=== PATIENT | female | born 1995 | race Caucasian/White ===

== ENCOUNTER → 2017-06-02 | Outpatient (CLI) | payer OTHER ==
[~2017-06-02] MED LIST: ACET-1256 PO; ASCA500 PO; BIOT1TAB5 PO; CEPH500C PO; CHRO200T3 PO; CIPR-255 PO; DICL-201 PO; FLV1 PO; HYDR200T5 PO; IBUP-1050 PO; LEVO200T PO; METH2.5T PO; OMEP10CA2 PO; PHEN-939 PO; POLY150C4 PO; RABE20TA5 PO; TOPI100T34 PO; [UNRECOGNIZED DRUG - CODE] IV
--- NOTE | 2017-06-02 11:30 | DIAGNOSTIC IMAGING REPORT ---
RIGHT HAND MIN 3 VIEWS ROUTINE CLINICAL HISTORY: HAND/WRIST PAIN Right pain COMPARISON: None. DISCUSSION: The bones and joint spaces appear intact. There is no evidence of fracture, dislocation or bony disease. There is no evidence for soft tissue swelling. IMPRESSION: Negative study. Electronically signed by: Giovanni Parra M.D. 06/02/2017 11:29 AM Dictated Date/Time: 06/02/2017 11:27 AM
--- NOTE | 2017-06-02 11:34 | DIAGNOSTIC IMAGING REPORT ---
RIGHT WRIST 4 VIEWS CLINICAL HISTORY: Right wrist pain. FINDINGS: 4 views of the right wrist are correlated with radiograph the right hand dated 06/10/2017. The skeletal structures are well mineralized. No fracture is seen. The joint spaces of the wrist are well-maintained. The overlying soft tissues are within normal limits. IMPRESSION: Unremarkable radiographic assessment of the right wrist. Electronically signed by: Kevin Saunders M.D. 06/02/2017 11:33 AM Dictated Date/Time: 06/02/2017 11:28 AM
--- NOTE | 2017-06-18 13:39 | CODING QUERY NO DIAGNOSIS ---
TREATMENT RENDERED WITHOUT A DIAGNOSIS To promote full compliance with coding requirements relating to patient care, physician participation is requested in all cases of pipe turner uncertainty. Please assist us with providing a diagnosis/symptom for the test(s) below: A diagnosis/symptom was not documented on your Order. A valid diagnosis/symptom is required to bill all insurances. Please remember that we are unable to code a diagnosis of rule out, probable, possible, questionable, or suspected. Tests that require a diagnosis: * HAND MIN 3 VIEWS ROUTINE DIAGNOSIS: * WRIST MIN 3 VIEW ROUTINE DIAGNOSIS: Provider Signature: Date: Thank you Samantha [employer] Once completed, please kindly fax back to [phone] For questions please call [phone]
== END | disposition home or self-care (01) ==
LOC: C.RAD1850 11:15
PROVIDERS: ATTEND Emergency Medicine
DX: M25.531 Pain in right wrist (principal)

== ENCOUNTER 2017-06-30 10:50 | Emergency (ER) | payer OTHER ==
[~2017-06-30] VITALS: Ht 162.6 cm; Wt 110.7 kg
[~2017-06-30 10:50] MED LIST changes: -ACET-1256 PO; -CEPH500C PO; -CHRO200T3 PO; -CIPR-255 PO; -IBUP-1050 PO; -PHEN-939 PO
[2017-06-30 11:09] VITALS: TEMP 37.4; Ht 162.6 cm; Wt 110.7 kg
[2017-06-30 11:40] LABS: BASO % 0.7 %; BASO ABS # 0.05 K/uL (0-0.2); COMPLETE YES; EOS % 2.4 %; IG% 0.3 %; LYMPH % 22.5 %; LYMPH ABS # 1.52 K/uL (1.2-3.4); MEAN CELL VOLUME 87.3 fL (80-100); MEAN CORPUSCULAR HEMOGLOBIN 29.9 pg (25-34); MEAN CORPUSCULAR HGB CONC 34.3 g/dl (32-36); MEAN PLATELET VOLUME 10.1 fL (7.4-10.4); MONO % 8.4 %; NEUT % 65.7 %; PLATELET COUNT 196 K/uL (130-400); RED BLOOD COUNT 4.58 M/uL (4.2-5.4); WHITE BLOOD COUNT 6.76 K/uL (4.8-10.8)
[2017-06-30] MEDS ORDERED: ONDANSETRON INJ 2 MG/ML 2 ML VIAL IV STA (11:45)
[2017-06-30] MEDS ORDERED: MoRPHine SULFATE 4 MG/ML 1 ML CARP\\VIAL IV STA (11:45)
[2017-06-30] MEDS ORDERED: ACET-1256 PO (11:48)
[2017-06-30] MEDS ORDERED: IBUP-1050 PO (11:48)
[2017-06-30] MEDS ORDERED: CHRO200T3 PO (11:48)
[2017-06-30 11:52] LABS: URINE APPEARANCE CLEAR (CLEAR); URINE BILIRUBIN NEG (NEG); URINE COLOR COLORLESS; URINE NITRITE NEG (NEG); URINE SPECIFIC GRAVITY <= 1.005 (1.000-1.030); UROBILINOGEN NEG (NEG)
[2017-06-30 11:54] LABS: REVIEW REQ? NO
[2017-06-30 11:55] LABS: MANUAL MICROSCOPIC REQUIRED? YES
[2017-06-30 11:57] LABS: BUN/CREATININE RATIO 13.1 (10-20); CREATININE 1.2 mg/dl (0.60-1.20); POTASSIUM 3.9 mmol/L (3.5-5.1)
[2017-06-30 12:04] LABS: URINE BACTERIA NEG (NEG); URINE RBC 0-4 /hpf (0-4); URINE WBC 0 /hpf (0-5); ZZUR CULT IF INDIC CLEAN CATCH NO
--- NOTE | 2017-06-30 12:15 | DIAGNOSTIC IMAGING REPORT ---
ABD/PELVIS NO IV OR ORAL CONT CT DOSE: 1610.33 mGy.cm HISTORY: Flank pain l flank pain TECHNIQUE: Multiaxial CT images of the abdomen and pelvis were performed without contrast. A dose lowering technique was utilized adhering to the principles of ALARA. COMPARISON STUDY: None. FINDINGS: Lung bases are clear. Liver spleen and pancreas are uniform. Prior cholecystectomy. Right kidney is negative for calcification or hydronephrosis. The right ureter is normal in course and caliber. Mild fullness left renal collecting system and proximal left ureter. No evidence for well-defined obstructing calculus. There is a 5 mm calculus posterior to the left ureter within the left soft tissue pelvis felt to be vascular. Bladder is midline with no contained calcifications. Bowel pattern is considered nonobstructive. The appendix is normal. IMPRESSION: 1. Slight fullness left renal collecting system with no evidence for well-defined obstructing calculus. 2. This potentially represents a recently passed calcification versus the possibility of mild pyelonephritis. 3. Remainder the study is unremarkable post cholecystectomy. 4. Nonobstructive bowel pattern. 5. Normal appendix. The above report was generated using voice recognition software. It may contain grammatical, syntax or spelling errors. Electronically signed by: Giovanni Parra M.D. 06/30/2017 12:14 PM Dictated Date/Time: 06/30/2017 12:04 PM
[2017-06-30] MEDS ORDERED: CEPHALEXIN MONOHYDRATE 250 MG CAP PO ONE (12:30)
[2017-06-30 12:51] VITALS: BP 114/80; PULSE 80; O2SAT 98
[2017-06-30] MEDS ORDERED: CEPH500C PO (13:10)
--- NOTE | 2017-06-30 15:40 | EMERGENCY ROOM VISIT NOTE ---
History Report prepared by Ayden: Stewart Hayward Under the Supervision of: Dr. Craig Reddy D.O. First contact with patient: 11:12 Chief Complaint: FLANK PAIN Stated Complaint: LOWER BACK PAIN, NAUSEA History of Present Illness The patient is a 21 year old female who presents to the Emergency Room with complaints of constant lower left back and flank pain starting 0930 this morning. The patient additionally states that she has been vomiting and has some pain with urination. She states that she thought she had a UTI a few days ago, though this has gone away. The patient has a history of a cholecystectomy and she has lupus. She states that she has been doing some heavy lifting, though the pain did not start with lifting. She states that she had a bowel movement this morning, and it was normal. Pt denies abdominal pain, headache, change in vision, fevers, chest pain, shortness of breath, diarrhea, and melena. Source of History: patient Onset: 0930 Position: back (lower) Timing: constant Associated Symptoms: + nausea, + vomiting, + urinary symptoms Review of Systems See HPI for pertinent positives & negatives. A total of 10 systems reviewed and were otherwise negative. Past Medical & Surgical Medical Problems: (1) Chronic migraine (2) Fibromyalgia (3) Gall bladder disease (4) Lupus (5) Stomach problems (6) Ulcer Family History Diabetes mellitus Gallbladder disease Heart disease Hypertension Lung disease Social History Smoking Status: Never Smoker Alcohol Use: none Drug Use: none Marital Status: single Occupation Status: student Current/Historical Medications Scheduled Acetaminophen (Tylenol), 1,000 MG PO DAILY Ascorbic Acid (Vitamin C), 500 MG PO BID Biotin (Biotin), 1,000 MCG PO DAILY Cephalexin Monohydrate (Keflex), 500 MG PO TID Chromium (Chromium), 1 TAB PO DAILY Ibuprofen (Advil), 400 MG PO DAILY Allergies Coded Allergies: Sulfa Antibiotics (Verified Allergy, Severe, LUPUS FLARE UP, 02/23/16) Amoxicillin (Verified Allergy, Intermediate, CHEST PAIN, 02/23/16) Mupirocin (Verified Allergy, Intermediate, RASH, 02/23/16) Physical Exam Vital Signs Date Time Temp Pulse Resp B/P (MAP) Pulse Ox O2 Delivery O2 Flow Rate FiO2 06/30/17 12:51 80 18 114/80 98 06/30/17 11:09 37.4 85 18 144/92 99 Room Air Physical Exam GENERAL: Sitting up in bed, disheveled, no acute distress, non-toxic EYE EXAM: normal conjunctiva OROPHARYNX: no exudate, no erythema, lips, buccal mucosa, and tongue normal and mucous membranes are moist NECK: supple, no nuchal rigidity, no adenopathy, non-tender LUNGS: Clear to auscultation. Normal chest wall mechanics HEART: no murmurs, S1 normal and S2 normal ABDOMEN: abdomen soft, non-tender, normo-active bowel sounds, no masses, no rebound or guarding. BACK: Acute reproducible tenderness in the lumbar paraspinal area. Back is symmetrical on inspection and there is no deformity, no CVA tenderness. SKIN: no rashes and no bruising UPPER EXTREMITIES: upper extremities are grossly normal. LOWER EXTREMITIES: No pitting edema. NEURO EXAM: Normal sensorium, cranial nerves II-XII grossly intact, normal speech, no gross weakness of arms, no gross weakness of legs. Gross sensation intact. Medical Decision & Procedures ER Provider Diagnostic Interpretation: Radiology results as stated below per my review and the radiologist's interpretation: ABD/PELVIS NO IV OR ORAL CONT CT DOSE: 1610.33 mGy.cm HISTORY: Flank pain l flank pain TECHNIQUE: Multiaxial CT images of the abdomen and pelvis were performed without contrast. A dose lowering technique was utilized adhering to the principles of ALARA. COMPARISON STUDY: None. FINDINGS: Lung bases are clear. Liver spleen and pancreas are uniform. Prior cholecystectomy. Right kidney is negative for calcification or hydronephrosis. The right ureter is normal in course and caliber. Mild fullness left renal collecting system and proximal left ureter. No evidence for well-defined obstructing calculus. There is a 5 mm calculus posterior to the left ureter within the left soft tissue pelvis felt to be vascular. Bladder is midline with no contained calcifications. Bowel pattern is considered nonobstructive. The appendix is normal. IMPRESSION: 1. Slight fullness left renal collecting system with no evidence for well-defined obstructing calculus. 2. This potentially represents a recently passed calcification versus the possibility of mild pyelonephritis. 3. Remainder the study is unremarkable post cholecystectomy. 4. Nonobstructive bowel pattern. 5. Normal appendix. The above report was generated using voice recognition software. It may contain grammatical, syntax or spelling errors. Electronically signed by: Giovanni Parra M.D. 06/30/2017 12:14 PM Dictated Date/Time: 06/30/2017 12:04 PM Laboratory Results 06/30/17 11:28 Red Blood Count 4.58, Mean Corpuscular Volume 87.3, Mean Corpuscular Hemoglobin 29.9, Mean Corpuscular Hemoglobin Concent 34.3, Mean Platelet Volume 10.1, Neutrophils (%) (Auto) 65.7, Lymphocytes (%) (Auto) 22.5, Monocytes (%) (Auto) 8.4, Eosinophils (%) (Auto) 2.4, Basophils (%) (Auto) 0.7, Neutrophils # (Auto) 4.44, Lymphocytes # (Auto) 1.52, Monocytes # (Auto) 0.57, Eosinophils # (Auto) 0.16, Basophils # (Auto) 0.05 06/30/17 11:28 Test 06/30/17 11:15 06/30/17 11:28 Urine Color COLORLESS Urine Appearance CLEAR (CLEAR) Urine pH 6.0 (4.5-7.5) Urine Specific Simpson <= 1.005 (1.000-1.030) Urine Protein NEG (NEG) Urine Glucose (UA) NEG (NEG) Urine Ketones NEG (NEG) Urine Occult Blood NEG (NEG) Urine Nitrite NEG (NEG) Urine Bilirubin NEG (NEG) Urine Urobilinogen NEG (NEG) Urine Leukocyte Esterase NEG (NEG) Urine RBC 0-4 /hpf (0-4) Urine WBC 0 /hpf (0-5) Urine Epithelial Cells 5-10 /lpf (0-5) Urine Bacteria NEG (NEG) Urine Test NEG (NEG) White Blood Count 6.76 K/uL (4.8-10.8) Red Blood Count 4.58 M/uL (4.2-5.4) Hemoglobin 13.7 g/dL (12.0-16.0) Hematocrit 40.0 % (37-47) Mean Corpuscular Volume 87.3 fL (80-100) Mean Corpuscular Hemoglobin 29.9 pg (25-34) Mean Corpuscular Hemoglobin Concent 34.3 g/dl (32-36) Platelet Count 196 K/uL (130-400) Mean Platelet Volume 10.1 fL (7.4-10.4) Neutrophils (%) (Auto) 65.7 % Lymphocytes (%) (Auto) 22.5 % Monocytes (%) (Auto) 8.4 % Eosinophils (%) (Auto) 2.4 % Basophils (%) (Auto) 0.7 % Neutrophils # (Auto) 4.44 K/uL (1.4-6.5) Lymphocytes # (Auto) 1.52 K/uL (1.2-3.4) Monocytes # (Auto) 0.57 K/uL (0.11-0.59) Eosinophils # (Auto) 0.16 K/uL (0-0.5) Basophils # (Auto) 0.05 K/uL (0-0.2) RDW Standard Deviation 45.8 fL (36.4-46.3) RDW Coefficient of Variation 14.4 % (11.5-14.5) Immature Granulocyte % (Auto) 0.3 % Immature Granulocyte # (Auto) 0.02 K/uL (0.00-0.02) Anion Gap 5.0 mmol/L (3-11) Est Creatinine Clear Calc Drug Dose 89.5 ml/min Estimated GFR () 74.3 Estimated GFR (Non- 64.1 BUN/Creatinine Ratio 13.1 (10-20) Calcium Level 9.0 mg/dl (8.5-10.1) Total Bilirubin 0.4 mg/dl (0.2-1) Direct Bilirubin 0.1 mg/dl (0-0.2) Aspartate Amino Transf (AST/SGOT) 24 U/L (15-37) Alanine Aminotransferase (ALT/SGPT) 29 U/L (12-78) Alkaline Phosphatase 54 U/L (45-117) Total Protein 7.6 gm/dl (6.4-8.2) Albumin 4.1 gm/dl (3.4-5.0) Lipase 180 U/L (73-393) Laboratory results per my review. Medications Administered Medications (Trade) Dose Ordered Sig/Loretta Route Start Time Stop Time Status Last Admin Dose Admin Morphine Sulfate (MoRPHine SULFATE INJ) 4 mg NOW STAT IV 06/30/17 11:45 06/30/17 11:46 DC 06/30/17 11:51 4 MG Ondansetron HCl (Zofran Inj) 4 mg NOW STAT IV 06/30/17 11:45 06/30/17 11:46 DC 06/30/17 11:51 4 MG Cephalexin Monohydrate (Keflex Cap) 500 mg NOW ONCE PO 06/30/17 12:30 06/30/17 12:31 DC 06/30/17 13:00 500 MG ED Course ED COURSE: Vital signs were reviewed and showed normal vitals The patients medical record was reviewed The above diagnostic studies were performed and reviewed. ED treatments and interventions as stated above. 1136: The patient was evaluated in room C7. A complete history and physical examination was performed. 1145: Zofran Inj 4mg IV, Morphine Sulfate 4mg IV 1230: Keflex Cap 500mg PO 1303: Upon reevaluation, the patient is feeling better.I discussed my findings with the patient and she understands and agrees with the treatment plan. She states that she is not allergic to cephalosporins. Based on the patients age, coexisting illnesses, exam and lab findings the decision to treat as an outpatient was made. The patient remained stable while under my care. The patient appeared well at the time of discharge. Medical Decision Differential diagnoses includes but is not limited to gastritis, peptic ulcer disease, GERD, gallbladder disease, pancreatitis, small bowel obstruction, acute coronary syndrome, pericarditis, ischemic bowel, irritable bowel disease, irritable bowel syndrome, appendicitis, diverticulitis, malignancy, hernia, urinary tract infection, torsion, /ectopic , perforation, trauma, infectious. Patient is a 21-year-old female who presents the ER for lower back/left flank pain which present since 9 this morning. She does admit to associated nausea vomiting. She's never had this pain before. Pain is worse with palpation. Vitals were unremarkable. CBC along with BMP, LFTs, bilirubin, lipase and urine negative. UA was clean. CT of the abdomen pelvis without contrast was performed for stone and showed small mild dilation of the left ureter. This could be consistent with a recent passed stone or UTI. UA is clean. She does admit to urinary frequency and urgency along with mild dysuria intermittently. I felt like this was reasonable to treat her with Keflex. I do favor that this likely a passed stone which is causing her symptoms however I felt it was prudent to cover her for 3 days for possible UTI with her symptoms. Discussed with Pt concerning signs and symptoms to watch out for. Pt was instructed to follow up with their PCP and discussed with the patient their option to return to the ED at anytime for persistent or worsening symptoms. The appropriate anticipatory guidance and out-patient management, including indications for return to the emergency department, were explained at length to the patient and understood. Medication Reconcilliation Current Medication List: was personally reviewed by me Blood Pressure Screening Patient's blood pressure: Normal blood pressure Impression Primary Impression: Left flank pain Scribe Attestation The scribe's documentation has been prepared under my direction and personally reviewed by me in its entirety. I confirm that the note above accurately reflects all work, treatment, procedures, and medical decision making performed by me. Departure Information Dispostion Home / Self-Care Prescriptions Cephalexin Monohydrate (Keflex) 500 Mg Cap 500 MG PO TID for 3 Days, #9 CAP Prov: Craig Reddy, DO 06/30/17 Referrals No Doctor, Assigned (PCP) Forms HOME CARE DOCUMENTATION FORM, IMPORTANT VISIT INFORMATION Patient Instructions ED Flank Pain Uncertain Cause, My [facility] Additional Instructions Please follow up with your primary care doctor or if you are a student, [facility] with in the next 24 hours. Any worsening of your symptoms, please return to the ED immediately. This includes any fevers greater than 100.4, worsening pain, chest pain, shortness breath, persistent nausea, vomiting, unable to eat or drink, or any other concerning signs or symptoms from your standpoint. You were given medications during this visit that will inhibit your ability to drive, operate machinery and work. Please do NOT drive, operate machinery or work for the next 12hrs. Please take Motrin or Tylenol as needed for pain. You were given a short prescription for Keflex as you're having urinary symptoms although your UA was negative as prophylaxis.
== END 2017-06-30 13:21 | disposition home or self-care (01) ==
LOC: C.EDB 10:51 → C.EDC 13:21
DX: R10.32 Left lower quadrant pain (principal); R11.2 Nausea with vomiting, unspecified; Z90.49 Acquired absence of other specified parts of digestive tract; M32.9 Systemic lupus erythematosus, unspecified; M79.7 Fibromyalgia; Z83.3 Family history of diabetes mellitus; Z82.49 Family history of ischemic heart disease and other diseases of the circulatory system; Z79.899 Other long term (current) drug therapy

== ENCOUNTER 2017-07-04 14:36 | Emergency (ER) | payer SELFPAY ==
[~2017-07-04] VITALS: Ht 160 cm; Wt 110.5 kg
[~2017-07-04 14:36] MED LIST changes: +ACET-1256 PO; +CEPH500C PO; +CHRO200T3 PO; -DICL-201 PO; -FLV1 PO; -HYDR200T5 PO; +IBUP-1050 PO; -LEVO200T PO; -METH2.5T PO; -OMEP10CA2 PO; -POLY150C4 PO; -RABE20TA5 PO; -TOPI100T34 PO; -[UNRECOGNIZED DRUG - CODE] IV
[2017-07-04 14:41] VITALS: TEMP 36.7; Ht 160 cm; Wt 110.5 kg
[2017-07-04] MEDS ORDERED: SODIUM CHLORIDE 0.9% 1000ML 1,000 ML IV STA (14:52)
[2017-07-04] MEDS ORDERED: KETOROLAC TROMETHAMINE 30 MG/ML VIAL IV STA (14:52)
[2017-07-04] MEDS ORDERED: ONDANSETRON INJ 2 MG/ML 2 ML VIAL IV STA (14:52)
[2017-07-04 15:28] LABS: BASO % 0.5 %; BASO ABS # 0.04 K/uL (0-0.2); COMPLETE YES; HEMATOCRIT 45.4 % (37-47); IG% 0.4 %; LYMPH % 27.8 %; LYMPH ABS # 2.24 K/uL (1.2-3.4); MEAN CELL VOLUME 87.1 fL (80-100); MEAN CORPUSCULAR HEMOGLOBIN 28.8 pg (25-34); MEAN PLATELET VOLUME 10.1 fL (7.4-10.4); MONO % 10.3 %; PLATELET COUNT 243 K/uL (130-400); RED BLOOD COUNT 5.21 M/uL (4.2-5.4); WHITE BLOOD COUNT 8.07 K/uL (4.8-10.8)
[2017-07-04 15:31] LABS: URINE APPEARANCE CLEAR (CLEAR); URINE BILIRUBIN NEG (NEG); URINE COLOR YELLOW; URINE EPITHELIAL CELL AUTO 0-5 /lpf (0-5); URINE NITRITE NEG (NEG); URINE PH 5.5 (4.5-7.5); URINE SPECIFIC GRAVITY 1.012 (1.000-1.030); UROBILINOGEN NEG (NEG); ZZUR CULT IF INDIC CLEAN CATCH NO
[2017-07-04 15:41] LABS: MANUAL MICROSCOPIC REQUIRED? NO; REVIEW REQ? NO
[2017-07-04 15:44] LABS: CALCIUM 9.1 mg/dl (8.5-10.1); CREATININE 1.4 mg/dl (0.60-1.20); POTASSIUM 3.7 mmol/L (3.5-5.1)
[2017-07-04 16:24] VITALS: BP 138/83; PULSE 79; O2SAT 100
[2017-07-04] MEDS ORDERED: CIPROFLOXACIN 500 MG TAB PO STA (16:35)
[2017-07-04] MEDS ORDERED: CIPR-255 PO (16:35)
--- NOTE | 2017-07-04 20:25 | EMERGENCY ROOM VISIT NOTE ---
History Report prepared by Ayden: Anitha Reis Under the Supervision of: Dr. Craig Reddy D.O. First contact with patient: 14:44 Chief Complaint: FLANK PAIN Stated Complaint: LEFT FLANK AND BLADDER PAIN History of Present Illness The patient is a 21 year old female who presents to the Emergency Room with complaints of persistent left flank pain starting last week. The patient was in the ED last week with the same symptoms. She was on antibiotics which improved her symptoms. She finished the antibiotics yesterday after which her symptoms began returning. She reports nausea, dysuria, urinary frequency, feeling exhausted, lightheaded, and pain in her bladder. She denies vaginal bleeding, discharge, fever. She has a history of lupus. She has had a cholecystectomy. Patient was seen here couple days ago following a negative CT and unremarkable workup. She is treated with her urinary symptoms although UA was completely negative with a short course of antibiotics. Her symptoms completely resolved until yesterday when she stop taking the antibiotics. Source of History: patient Onset: last week Position: other (left flank) Quality: other (pain) Timing: other (persistent) Associated Symptoms: + nausea, + urinary symptoms, + fatigue, No fevers Note: Pt reports exhaustion, lightheaded, bladder pain. Pt denies vaginal bleeding, discharge. Review of Systems See HPI for pertinent positives & negatives. A total of 10 systems reviewed and were otherwise negative. Past Medical & Surgical Medical Problems: (1) Chronic migraine (2) Fibromyalgia (3) Gall bladder disease (4) Lupus (5) Stomach problems (6) Ulcer Family History Diabetes mellitus Gallbladder disease Heart disease Hypertension Lung disease Social History Smoking Status: Never Smoker Alcohol Use: none Drug Use: none Marital Status: single Occupation Status: student Current/Historical Medications Scheduled Acetaminophen (Tylenol), 1,000 MG PO DAILY Ascorbic Acid (Vitamin C), 500 MG PO BID Biotin (Biotin), 1,000 MCG PO DAILY Chromium (Chromium), 1 TAB PO DAILY Ciprofloxacin Hcl (Cipro), 500 MG PO BID Ibuprofen (Advil), 400 MG PO DAILY Allergies Coded Allergies: Sulfa Antibiotics (Verified Allergy, Severe, LUPUS FLARE UP, 02/23/16) Amoxicillin (Verified Allergy, Intermediate, CHEST PAIN, 02/23/16) Mupirocin (Verified Allergy, Intermediate, RASH, 02/23/16) Physical Exam Vital Signs Date Time Temp Pulse Resp B/P (MAP) Pulse Ox O2 Delivery O2 Flow Rate FiO2 07/04/17 16:24 79 16 138/83 100 Room Air 07/04/17 14:41 36.7 98 17 136/92 100 Room Air Physical Exam GENERAL: sitting up in bed, disheveled, no distress, non-toxic EYE EXAM: normal conjunctiva OROPHARYNX: no exudate, no erythema, lips, buccal mucosa, and tongue normal and mucous membranes are moist NECK: supple, no nuchal rigidity, no adenopathy, non-tender LUNGS: Clear to auscultation. Normal chest wall mechanics HEART: no murmurs, S1 normal and S2 normal ABDOMEN: abdomen soft, faint tenderness to the suprapubic region, normo-active bowel sounds, no masses, no rebound or guarding. BACK: Back is symmetrical on inspection and there is no deformity, no midline tenderness, no CVA tenderness. PELVIS: normal external genitalia, normal vaginal mucosa, no adnexal or cervical motion tenderness. SKIN: no rashes and no bruising UPPER EXTREMITIES: upper extremities are grossly normal. LOWER EXTREMITIES: No pitting edema. NEURO EXAM: Normal sensorium, cranial nerves II-XII grossly intact, normal speech, no gross weakness of arms, no gross weakness of legs. Medical Decision & Procedures Laboratory Results 07/04/17 15:05 Red Blood Count 5.21, Mean Corpuscular Volume 87.1, Mean Corpuscular Hemoglobin 28.8, Mean Corpuscular Hemoglobin Concent 33.0, Mean Platelet Volume 10.1, Neutrophils (%) (Auto) 59.0, Lymphocytes (%) (Auto) 27.8, Monocytes (%) (Auto) 10.3, Eosinophils (%) (Auto) 2.0, Basophils (%) (Auto) 0.5, Neutrophils # (Auto ) 4.77, Lymphocytes # (Auto) 2.24, Monocytes # (Auto) 0.83, Eosinophils # (Auto ) 0.16, Basophils # (Auto) 0.04 07/04/17 15:05 Test 07/04/17 15:05 07/04/17 16:30 White Blood Count 8.07 K/uL (4.8-10.8) Red Blood Count 5.21 M/uL (4.2-5.4) Hemoglobin 15.0 g/dL (12.0-16.0) Hematocrit 45.4 % (37-47) Mean Corpuscular Volume 87.1 fL (80-100) Mean Corpuscular Hemoglobin 28.8 pg (25-34) Mean Corpuscular Hemoglobin Concent 33.0 g/dl (32-36) Platelet Count 243 K/uL (130-400) Mean Platelet Volume 10.1 fL (7.4-10.4) Neutrophils (%) (Auto) 59.0 % Lymphocytes (%) (Auto) 27.8 % Monocytes (%) (Auto) 10.3 % Eosinophils (%) (Auto) 2.0 % Basophils (%) (Auto) 0.5 % Neutrophils # (Auto) 4.77 K/uL (1.4-6.5) Lymphocytes # (Auto) 2.24 K/uL (1.2-3.4) Monocytes # (Auto) 0.83 K/uL (0.11-0.59) Eosinophils # (Auto) 0.16 K/uL (0-0.5) Basophils # (Auto) 0.04 K/uL (0-0.2) RDW Standard Deviation 45.3 fL (36.4-46.3) RDW Coefficient of Variation 14.1 % (11.5-14.5) Immature Granulocyte % (Auto) 0.4 % Immature Granulocyte # (Auto) 0.03 K/uL (0.00-0.02) Urine Color YELLOW Urine Appearance CLEAR (CLEAR) Urine pH 5.5 (4.5-7.5) Urine Specific [place] 1.012 (1.000-1.030) Urine Protein NEG (NEG) Urine Glucose (UA) NEG (NEG) Urine Ketones NEG (NEG) Urine Occult Blood NEG (NEG) Urine Nitrite NEG (NEG) Urine Bilirubin NEG (NEG) Urine Urobilinogen NEG (NEG) Urine Leukocyte Esterase NEG (NEG) Urine WBC (Auto) 0 /hpf (0-5) Urine RBC (Auto) 0-4 /hpf (0-4) Urine Hyaline Casts (Auto) 0 /lpf (0-5) Urine Epithelial Cells (Auto) 0-5 /lpf (0-5) Urine Bacteria (Auto) NEG (NEG) Urine Test NEG (NEG) Anion Gap 6.0 mmol/L (3-11) Est Creatinine Clear Calc Drug Dose 75.3 ml/min Estimated GFR () 61.7 Estimated GFR (Non- 53.2 BUN/Creatinine Ratio 9.0 (10-20) Calcium Level 9.1 mg/dl (8.5-10.1) Total Bilirubin 0.5 mg/dl (0.2-1) Direct Bilirubin 0.1 mg/dl (0-0.2) Aspartate Amino Transf (AST/SGOT) 24 U/L (15-37) Alanine Aminotransferase (ALT/SGPT) 35 U/L (12-78) Alkaline Phosphatase 63 U/L (45-117) Total Protein 8.5 gm/dl (6.4-8.2) Albumin 4.4 gm/dl (3.4-5.0) Lipase 195 U/L (73-393) Laboratory results per my review. Medications Administered Medications (Trade) Dose Ordered Sig/Loretta Route Start Time Stop Time Status Last Admin Dose Admin Sodium Chloride 1,000 ml @ 999 mls/hr Q1H1M STAT IV 07/04/17 14:52 07/04/17 15:52 DC 07/04/17 15:09 999 MLS/HR Ondansetron HCl (Zofran Inj) 4 mg NOW STAT IV 07/04/17 14:52 07/04/17 14:55 DC 07/04/17 15:09 4 MG Ketorolac Tromethamine (Toradol Inj) 30 mg NOW STAT IV 07/04/17 14:52 07/04/17 14:55 DC 07/04/17 15:10 30 MG ED Course ED COURSE: Vital signs were reviewed and showed hypertension. The patients medical record was reviewed The above diagnostic studies were performed and reviewed. ED treatments and interventions as stated above. 1446: The patient was evaluated in room A9B. A complete history and physical examination was performed. 1452: Toradol Inj 30 mg IV, Zofran Inj 4 mg IV, NSS 1000 ml @ 999 mls/hr IV. 1625: Upon reevaluation, the patient is resting comfortably.I discussed my findings with the patient and she understands and agrees with the treatment plan. Based on the patients age, coexisting illnesses, exam and lab findings the decision to treat as an outpatient was made. The patient remained stable while under my care. The patient appeared well at the time of discharge. Medical Decision Differential diagnoses includes but is not limited to appendicitis, diverticulitis, small bowel obstruction, malignancy, hernia, urinary tract infection, torsion, and ectopic (if female), perforation, trauma, infectious. Patient is a 19-year-old female who presents the ER for urinary frequency, urgency and dysuria. She was seen here 3 days ago following complaining of flank pain and urinary symptoms. CT showed a slightly dilated distal ureter which at that time I ordered was passed stone. I did cover her with a short course of antibiotics as she had a lot of urinary symptoms but the UA was completely negative. CBC along with BMP, LFTs, bilirubin and lipase were negative. UA was again completely negative. Urine was negative. With her symptoms completely resolving well on antibiotics elected to treat her again with Cipro for full course discussion with her second unremarkable workup and a negative pelvic exam. was negative. Patient was feeling better and discharged follow with PCP. Discussed with Pt concerning signs and symptoms to watch out for. Pt was instructed to follow up with their PCP and discussed with the patient their option to return to the ED at anytime for persistent or worsening symptoms. The appropriate anticipatory guidance and out- patient management, including indications for return to the emergency department , were explained at length to the patient and understood. Medication Reconcilliation Current Medication List: was personally reviewed by me Blood Pressure Screening Patient's blood pressure: Elevated blood pressure Blood pressure disposition: Elevated BP felt to be situational Impression Primary Impression: Urinary tract infection symptoms Scribe Attestation The scribe's documentation has been prepared under my direction and personally reviewed by me in its entirety. I confirm that the note above accurately reflects all work, treatment, procedures, and medical decision making performed by me. Departure Information Dispostion Home / Self-Care Prescriptions Ciprofloxacin Hcl (CIPRO) 500 Mg Tab 500 MG PO BID, #20 TAB Prov: Craig Reddy, DO 07/04/17 Referrals No Doctor, Assigned (PCP) Forms HOME CARE DOCUMENTATION FORM, IMPORTANT VISIT INFORMATION Patient Instructions ED UTI Cystitis Female, My [facility] Additional Instructions Please follow up with your primary care doctor or if you are a student, [facility] with in the next 24 hours. Any worsening of your symptoms, please return to the ED immediately. This includes any fevers greater than 100.4, worsening pain, chest pain, shortness breath, persistent nausea, vomiting, unable to eat or drink, or any other concerning signs or symptoms from your standpoint.
[2017-07-06 13:32] LABS: CHLAMYDIA TRACH RNA*** NOT DETECTED (NOT DETECTED); GC (NEIS GONORRHOEAE)RNA** NOT DETECTED (NOT DETECTED)
== END 2017-07-04 16:50 | disposition home or self-care (01) ==
LOC: C.EDB 14:37 → C.EDA 16:50
DX: N39.0 Urinary tract infection, site not specified (principal); M79.7 Fibromyalgia; Z83.3 Family history of diabetes mellitus; Z82.49 Family history of ischemic heart disease and other diseases of the circulatory system

== ENCOUNTER 2017-08-09 08:19 | Emergency (ER) | payer OTHER ==
[~2017-08-09] VITALS: Ht 162.6 cm; Wt 113.1 kg
[~2017-08-09 08:19] MED LIST changes: -CEPH500C PO; +CIPR-255 PO
[2017-08-09 08:21] VITALS: TEMP 36.8; Ht 162.6 cm; Wt 113.1 kg
[2017-08-09] MEDS ORDERED: ONDANSETRON INJ 2 MG/ML 2 ML VIAL IV STA (08:40)
[2017-08-09] MEDS ORDERED: KETOROLAC TROMETHAMINE 30 MG/ML VIAL IV STA (08:40)
[2017-08-09] MEDS ORDERED: SODIUM CHLORIDE 0.9% 1000ML 1,000 ML IV STA (08:40)
--- NOTE | 2017-08-09 08:52 | EMERGENCY ROOM VISIT NOTE ---
History First contact with patient: 08:28 Chief Complaint: ABDOMINAL PAIN Stated Complaint: LEFT KIDNEY PAIN, NAUSEA Nursing Triage Summary: Lower left sided abd pain, nausea, vomiting, pain for approx a week and the nausea and vomiting started this a.m. Hx of kidney stones History of Present Illness The patient is a 21 year old female who presents to the Emergency Room with complaints of left flank and left lower quadrant pain. The patient states her symptoms were also associated with nausea and vomiting this morning. The patient states she does have a history of kidney stones, and believes she passed one approximately one month ago. The patient was seen here in the emergency department at that time, for she had a negative CT scan performed, however this did indicate slight fullness in the left renal collecting system. They suspected a passed stone at that time, and the patient was treated with antibiotics. A few days later, she was seen again in the emergency department, and put on a longer course of antibiotics. The patient states that her symptoms did improve with the antibiotics, and she was symptom-free for approximately one month. The patient states for the past week, she has been experiencing worsening "kidney pain". Patient states the pain is always on the left side. She states she feels that "my bladder is uncomfortable" and describes this discomfort a 2/10, which waxes and wanes. The patient does report some urinary frequency and burning with urination, but she denies any hematuria. The patient states her periods have been regular for her. Other than the one episode of nausea with vomiting this morning, she denies the symptoms leading up to today. She denies any fever, chills, vaginal discharge, chest pain, dyspnea, recent illness, or other associated symptoms. The patient has not seen [facility] or a urologist for her symptoms. 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 The patient did take one dose of DayQuil this morning, because she did not want to feel sick today. She states this did not help with her pain. Review of Systems A complete 10 point review of systems was reviewed with the patient with pertinent positives and negatives as per history of present illness. All else were negative. Past Medical/Surgical History Medical Problems: (1) Chronic migraine (2) Fibromyalgia (3) Gall bladder disease (4) Lupus (5) Stomach problems (6) Ulcer Family History Diabetes mellitus Gallbladder disease Heart disease Hypertension Lung disease Social History Smoking Status: Never Smoker Smokeless Tobacco Use: No Alcohol Use: none Drug Use: none Marital Status: single Housing Status: lives with roommate Occupation Status: student Current/Historical Medications Scheduled Acetaminophen (Tylenol), 1,000 MG PO DAILY Ascorbic Acid (Vitamin C), 500 MG PO BID Biotin (Biotin), 1,000 MCG PO DAILY Chromium (Chromium), 1 TAB PO DAILY Ciprofloxacin Hcl (Cipro), 500 MG PO BID Ibuprofen (Advil), 400 MG PO DAILY Phenazopyridine Hcl (Pyridium), 1 TAB PO TID Allergies Amoxicillin, mupirocin, sulfa Physical Exam Vital Signs Date Time Temp Pulse Resp B/P (MAP) Pulse Ox O2 Delivery O2 Flow Rate FiO2 08/09/17 10:55 73 16 125/86 98 08/09/17 10:08 73 18 120/88 98 Room Air 08/09/17 08:21 36.8 79 16 140/86 100 Room Air Physical Exam VITALS: Vitals are noted on the nurse's note and reviewed by myself. Vital signs stable. GENERAL: This is a 21-year-old obese, white female, in no acute distress, nondiaphoretic, well-developed well-nourished. SKIN: The skin was without rashes, erythema, edema, or bruising. There is no tenting of the skin. Capillary reflex less than 2 seconds. HEAD: Normocephalic atraumatic. EARS: External auditory canals clear, tympanic membranes pearly pizarro without erythema or effusion bilaterally. EYES: Pupils equal round and reactive to light and accommodation. Conjunctivae without injection, sclerae without icterus. Extraocular movements intact. NOSE: Patent, turbinates without inflammation or discharge. No sinus tenderness. MOUTH: Mucous membranes moist. Tonsils are not enlarged. Pharynx without erythema or exudate. Uvula midline. Airway patent. Tongue does not deviate. NECK: Supple without nuchal rigidity. No lymphadenopathy. No thyromegaly. Cervical spine is nontender. No JVD. HEART: Regular rate and rhythm without murmurs gallops or rubs. LUNGS: Clear to auscultation bilaterally without wheezes, rales or rhonchi. No dullness to percussion. No retractions or accessory muscle use. ABDOMEN: Positive bowel sounds x 4. Normal tympanic percussion. The patient is experiencing tenderness in the left lower quadrant and left flank. Otherwise , the abdomen is soft, nontender, without masses or organomegaly. Das sign negative. No guarding or rebound tenderness. MUSCULOSKELETAL: No muscle atrophy, erythema, or edema noted. Full range of motion without joint tenderness in all extremities. No tenderness to palpation. Normal gait. Strength 5/5 throughout. NEURO: Patient was alert and oriented to person place and time. Normal sensation to light and sharp touch. Deep tendon reflexes 2+ throughout. No focal neurological deficits. Medical Decision & Procedures ER Provider Diagnostic Interpretation: LABS: CBC without leukocytosis, anemia,thrombocytopenia. PRP showed normal electrolytes and renal function. Urinalysis was without positive nitrites, ketones, blood, or leukocytes. RADIOLOGY: RENAL U/S: RENAL ULTRASOUND CLINICAL HISTORY: Urinary frequency. Left flank pain. Possible stone. COMPARISON STUDY: CT of the abdomen and pelvis June 30, 2017. TECHNIQUE: Sonography of the kidneys and the urinary bladder was performed. FINDINGS: The right kidney measures 9.6 x 4.6 x 4 cm and the left measures 10.2 x 5.4 x 4.5 cm. There is no hydronephrosis. No calculi are identified. No renal masses are identified. Both ureteral jets were identified. IMPRESSION: Normal renal ultrasound. No hydronephrosis. Pelvic U/S: EXAMINATION: PELVIC ULTRASOUND (transabdominal and endovaginal scanning). CLINICAL HISTORY: LLQ pain/tenderness COMPARISON STUDY: FINDINGS: The uterus measured 6.6 x 2.1 x 3.9 cm. There is minimal fluid in the lower uterine segment/cervix.. The endometrial stripe measured 2 mm. The right ovary measured 23 x 20 x 24 mm. The left ovary measured 27 x 20 x 20 mm.. There is no ultrasonographic evidence of ovarian torsion. It should be noted that ovarian torsion can be present with normal Doppler ultrasonographic findings. There is a small amount of free pelvic fluid, possibly physiologic. IMPRESSION: 1. No pathologic uterine or ovarian masses 2. Small amount of free pelvic fluid Laboratory Results 08/09/17 08:35 Red Blood Count 4.85, Mean Corpuscular Volume 87.8, Mean Corpuscular Hemoglobin 29.5, Mean Corpuscular Hemoglobin Concent 33.6, Mean Platelet Volume 10.5, Neutrophils (%) (Auto) 65.6, Lymphocytes (%) (Auto) 23.2, Monocytes (%) (Auto) 8.2, Eosinophils (%) (Auto) 1.9, Basophils (%) (Auto) 0.7, Neutrophils # (Auto) 5.99, Lymphocytes # (Auto) 2.12, Monocytes # (Auto) 0.75, Eosinophils # (Auto) 0.17, Basophils # (Auto) 0.06 08/09/17 08:35 Test 08/09/17 08:30 08/09/17 08:35 Urine Color YELLOW Urine Appearance CLEAR (CLEAR) Urine pH 6.5 (4.5-7.5) Urine Specific [place] 1.008 (1.000-1.030) Urine Protein NEG (NEG) Urine Glucose (UA) NEG (NEG) Urine Ketones NEG (NEG) Urine Occult Blood NEG (NEG) Urine Nitrite NEG (NEG) Urine Bilirubin NEG (NEG) Urine Urobilinogen NEG (NEG) Urine Leukocyte Esterase NEG (NEG) Urine Test NEG (NEG) White Blood Count 9.13 K/uL (4.8-10.8) Red Blood Count 4.85 M/uL (4.2-5.4) Hemoglobin 14.3 g/dL (12.0-16.0) Hematocrit 42.6 % (37-47) Mean Corpuscular Volume 87.8 fL (80-100) Mean Corpuscular Hemoglobin 29.5 pg (25-34) Mean Corpuscular Hemoglobin Concent 33.6 g/dl (32-36) Platelet Count 218 K/uL (130-400) Mean Platelet Volume 10.5 fL (7.4-10.4) Neutrophils (%) (Auto) 65.6 % Lymphocytes (%) (Auto) 23.2 % Monocytes (%) (Auto) 8.2 % Eosinophils (%) (Auto) 1.9 % Basophils (%) (Auto) 0.7 % Neutrophils # (Auto) 5.99 K/uL (1.4-6.5) Lymphocytes # (Auto) 2.12 K/uL (1.2-3.4) Monocytes # (Auto) 0.75 K/uL (0.11-0.59) Eosinophils # (Auto) 0.17 K/uL (0-0.5) Basophils # (Auto) 0.06 K/uL (0-0.2) RDW Standard Deviation 44.5 fL (36.4-46.3) RDW Coefficient of Variation 13.8 % (11.5-14.5) Immature Granulocyte % (Auto) 0.4 % Immature Granulocyte # (Auto) 0.04 K/uL (0.00-0.02) Anion Gap 4.0 mmol/L (3-11) Est Creatinine Clear Calc Drug Dose 98.9 ml/min Estimated GFR () 82.5 Estimated GFR (Non- 71.2 BUN/Creatinine Ratio 9.7 (10-20) Calcium Level 9.2 mg/dl (8.5-10.1) Medications Administered Medications (Trade) Dose Ordered Sig/Loretta Route Start Time Stop Time Status Last Admin Dose Admin Sodium Chloride 1,000 ml @ 999 mls/hr Q1H1M STAT IV 08/09/17 08:40 08/09/17 09:40 DC 08/09/17 08:40 999 MLS/HR Ondansetron HCl (Zofran Inj) 4 mg NOW STAT IV 08/09/17 08:40 08/09/17 08:43 DC 08/09/17 08:53 4 MG Ketorolac Tromethamine (Toradol Inj) 30 mg NOW STAT IV 08/09/17 08:40 08/09/17 08:43 DC 08/09/17 08:53 30 MG Medical Decision The patient was seen and evaluated as above. I did extensively review her previous visit to the emergency department with previous workups performed. She was given Toradol and Zofran IV for her symptoms, which did help. She did have a pelvic examination completed last month with negative GC and chlamydia cultures. The patient states her symptoms are the same as they were last month , and symptoms then did improve on antibiotics. While there is no laboratory evidence of infection at this time, based on the patient's clinical examination and previous history, I will treat her at this time with a short course of antibiotics. I did discuss with the patient that I feel that it is important for her to follow up with urology, and I did speak with case management regarding scheduling an appointment. The patient states she is interested in following up with urology, and will go to an appointment which is scheduled for her. I did discuss the case with Dr. Hyman, who is in agreement with the assessment and plan. Differential diagnosis includes: Urinary tract infection, pyelonephritis, nephrolithiasis, ovarian cyst, ovarian torsion, uterine fibroid, hydronephrosis , malignancy, and others. Medication Reconcilliation Current Medication List: was personally reviewed by me Blood Pressure Screening Patient's blood pressure: Normal blood pressure Impression Primary Impression: Left lower quadrant pain Additional Impressions: Left flank pain Urinary tract infection symptoms Departure Information Dispostion Home / Self-Care Condition GOOD Prescriptions Ciprofloxacin Hcl (CIPRO) 500 Mg Tab 500 MG PO BID for 7 Days, #14 TAB Prov: Brook Mak PA-C 08/09/17 Phenazopyridine Hcl (PYRIDIUM) 100 Mg Tab 1 TAB PO TID for 3 Days, #9 TAB Prov: Brook Mak PA-C 08/09/17 Referrals No Doctor, Assigned (PCP) Patient Instructions ED Abdominal Pain Unkn Cause, ED UTI Cystitis Female, My [facility] Additional Instructions You have been treated in the Emergency Department your Abdominal Pain. Laboratory results and imaging studies have ruled out any emergent causes for your abdominal pain which would warrant admission or surgery. You have been prescribed Cipro to be taken BID. This is an antibiotic. All antibiotics have the potential to cause diarrhea. Stop this medication and contact a medical provider if you were to develop any significant adverse side effects including: wheezing, shortness of breath, passing out, vomiting, or a diffuse rash. Always take antibiotics as directed and COMPLETE the ENTIRE course regardless of the improvement of your symptoms. You have been prescribed Pyridium to be taken as prescribed. This medicine will help with the urinary symptoms that you have been experiencing. Be aware that Pyridium may turn your urine a red-orange or brown color. This effect is harmless. Drink plenty of water and stay well hydrated. As with any trip to the Emergency Department, you should follow-up with your Primary Care Provider from today's visit. Please follow up with urology as was scheduled for you tomorrow. Return to the emergency department if your symptoms persist despite treatment plan outlined above or if the following symptoms occur: increased fevers, chills , worsening nausea/vomiting, blood in your stool or urine. Problem Qualifiers
[2017-08-09 08:56] LABS: URINE APPEARANCE CLEAR (CLEAR); URINE BILIRUBIN NEG (NEG); URINE COLOR YELLOW; URINE NITRITE NEG (NEG); URINE PH 6.5 (4.5-7.5); URINE SPECIFIC GRAVITY 1.008 (1.000-1.030); UROBILINOGEN NEG (NEG); ZZUR CULT IF INDIC CLEAN CATCH NO
[2017-08-09 08:58] LABS: MANUAL MICROSCOPIC REQUIRED? NO; REVIEW REQ? NO
[2017-08-09 09:22] LABS: BASO % 0.7 %; BASO ABS # 0.06 K/uL (0-0.2); COMPLETE YES; EOS % 1.9 %; HEMATOCRIT 42.6 % (37-47); IG% 0.4 %; LYMPH % 23.2 %; LYMPH ABS # 2.12 K/uL (1.2-3.4); MEAN CELL VOLUME 87.8 fL (80-100); MEAN CORPUSCULAR HEMOGLOBIN 29.5 pg (25-34); MEAN CORPUSCULAR HGB CONC 33.6 g/dl (32-36); MEAN PLATELET VOLUME 10.5 fL (7.4-10.4); MONO % 8.2 %; NEUT % 65.6 %; PLATELET COUNT 218 K/uL (130-400); RED BLOOD COUNT 4.85 M/uL (4.2-5.4); WHITE BLOOD COUNT 9.13 K/uL (4.8-10.8)
[2017-08-09 09:53] LABS: POTASSIUM 3.6 mmol/L (3.5-5.1)
[2017-08-09 09:54] LABS: BUN/CREATININE RATIO 9.7 (10-20); CALCIUM 9.2 mg/dl (8.5-10.1); CREATININE 1.1 mg/dl (0.60-1.20)
--- NOTE | 2017-08-09 10:20 | DIAGNOSTIC IMAGING REPORT ---
EXAMINATION: PELVIC ULTRASOUND (transabdominal and endovaginal scanning). CLINICAL HISTORY: LLQ pain/tenderness COMPARISON STUDY: FINDINGS: The uterus measured 6.6 x 2.1 x 3.9 cm. There is minimal fluid in the lower uterine segment/cervix.. The endometrial stripe measured 2 mm. The right ovary measured 23 x 20 x 24 mm. The left ovary measured 27 x 20 x 20 mm.. There is no ultrasonographic evidence of ovarian torsion. It should be noted that ovarian torsion can be present with normal Doppler ultrasonographic findings. There is a small amount of free pelvic fluid, possibly physiologic. IMPRESSION: 1. No pathologic uterine or ovarian masses 2. Small amount of free pelvic fluid Electronically signed by: Will Owusu M.D. 08/09/2017 10:19 AM Dictated Date/Time: 08/09/2017 10:17 AM
--- NOTE | 2017-08-09 10:20 | DIAGNOSTIC IMAGING REPORT ---
RENAL ULTRASOUND CLINICAL HISTORY: Urinary frequency. Left flank pain. Possible stone. COMPARISON STUDY: CT of the abdomen and pelvis June 30, 2017. TECHNIQUE: Sonography of the kidneys and the urinary bladder was performed. FINDINGS: The right kidney measures 9.6 x 4.6 x 4 cm and the left measures 10.2 x 5.4 x 4.5 cm. There is no hydronephrosis. No calculi are identified. No renal masses are identified. Both ureteral jets were identified. IMPRESSION: Normal renal ultrasound. No hydronephrosis. Electronically signed by: Michael Bravo M.D. 08/09/2017 10:19 AM Dictated Date/Time: 08/09/2017 10:18 AM
[2017-08-09] MEDS ORDERED: PHEN-939 PO (10:37)
[2017-08-09] MEDS ORDERED: CIPR-255 PO (10:37)
[2017-08-09 10:55] VITALS: BP 125/86; PULSE 73; O2SAT 98
== END 2017-08-09 10:56 | disposition home or self-care (01) ==
LOC: C.EDB 08:20 → C.EDA 10:56
DX: R10.32 Left lower quadrant pain (principal); R11.2 Nausea with vomiting, unspecified; Z87.442 Personal history of urinary calculi; R35.0 Frequency of micturition; R30.0 Dysuria; E06.3 Autoimmune thyroiditis; M79.7 Fibromyalgia; M32.9 Systemic lupus erythematosus, unspecified; Z79.899 Other long term (current) drug therapy; E66.9 Obesity, unspecified; Z68.41 Body mass index [BMI] 40.0-44.9, adult; Z83.3 Family history of diabetes mellitus; Z82.49 Family history of ischemic heart disease and other diseases of the circulatory system

== ENCOUNTER 2017-12-15 11:26 | Emergency (ER) | payer OTHER ==
[~2017-12-15] VITALS: Ht 162.6 cm; Wt 117.3 kg
[2017-12-15 11:33] VITALS: TEMP 37.2; Ht 162.6 cm; Wt 117.3 kg
[2017-12-15] MEDS ORDERED: IBUPROFEN 600 MG TAB PO STA (12:00)
[2017-12-15] MEDS ORDERED: CHOL100010 PO (12:09)
--- NOTE | 2017-12-15 12:56 | DIAGNOSTIC IMAGING REPORT ---
R KNEE 3 VIEWS HISTORY: 21 years-old Female anterior knee pain/contusion, fall acute right anterior knee pain and contusion status post fall COMPARISON: None available TECHNIQUE: AP lateral, and sunrise views of the right knee FINDINGS: No acute fracture, subluxation or significant degenerative changes. No osteochondral defect or intra-articular loose body. Suspected trace knee joint effusion with mild soft tissue swelling about the knee. IMPRESSION: 1. No acute fracture or subluxation. 2. Trace joint effusion with mild soft tissue swelling. The above report was generated using voice recognition software. It may contain grammatical, syntax or spelling errors. Electronically signed by: Steven Romo M.D. 12/15/2017 12:55 PM Dictated Date/Time: 12/15/2017 12:54 PM
--- NOTE | 2017-12-15 13:46 | EMERGENCY ROOM VISIT NOTE ---
ED Visit Note First contact with patient: 11:54 CHIEF COMPLAINT: right knee pain, fall on ice HISTORY OF PRESENT ILLNESS: This 21-year-old female patient presents to the emergency department approximately 4 hours after sustaining an injury to the right knee and she slipped and fell on ice, landing on her right knee. She states immediately after, she went back inside to prepared to go to class. She has been elevating and applying ice to the knee due to the pain. She had taken a dose of Excedrin at 7 AM this morning due to a migraine, so did not take any more medications for pain. She states immediately after the injury, she was feeling nauseated, and did take some Zofran. She states she is feeling much less nauseated now. The patient denies any other injuries besides their knee. The patient does report swelling, but no bruising. There is pain in the anterior aspect, and throughout the rest of the knee joint. They rate the pain as throbbing and 7/10. The patient states they are able to walk on it, but it does feel unstable while walking. No numbness or tingling. No previous injuries to this knee. No ankle, foot or hip pain. REVIEW OF SYSTEMS: A 6 system review of systems was completed with positives and pertinent negatives listed in the HPI. ALLERGIES: Amoxicillin, Bactroban, sulfa MEDICATIONS: Vitamin D, calcium PMH: Lupus, fibromyalgia SOCIAL HISTORY: The patient is a [employer] student. She lives locally with her remain. She denies drug, alcohol, tobacco use. PHYSICAL EXAM: Vital Signs: Reviewed Nurse's notes, vital signs stable. GENERAL : This is a 21-year-old obese white female, no acute distress, but appears in pain, well-developed, well-nourished. MENTAL STATUS: Alert, oriented to person place and time, and cooperative. MUSCULOSKELETAL: The right knee is anteriorly swollen. There is no ecchymosis. There is no joint effusion present. The patient is tender throughout the knee joint, but worse on the anterior aspect. There is a superficial abrasion noted on the anterior aspect of the knee, overlying the patella. There is no joint line tenderness. The patella does appropriately subluxate. Range of motion is full, but painful. Strength of the quads and hamstrings is 5/5. Marcelo's is negative. Charo's and Anterior Drawer tests are negative. There is no discomfort with varus and valgus stressing. The foot and toes are warm and well-perfused. Dorsalis pedis pulse 2+. Sensation to pain and light touch is intact. Capillary refill less than 2 seconds. RADIOLOGY: R KNEE 3 VIEWS HISTORY: 21 years-old Female anterior knee pain/contusion, fall acute right anterior knee pain and contusion status post fall COMPARISON: None available TECHNIQUE: AP lateral, and sunrise views of the right knee FINDINGS: No acute fracture, subluxation or significant degenerative changes. No osteochondral defect or intra-articular loose body. Suspected trace knee joint effusion with mild soft tissue swelling about the knee. IMPRESSION: 1. No acute fracture or subluxation. 2. Trace joint effusion with mild soft tissue swelling. The above report was generated using voice recognition software. It may contain grammatical, syntax or spelling errors. Electronically signed by: Steven Romo M.D. 12/15/2017 12:55 PM Dictated Date/Time: 12/15/2017 12:54 PM EMERGENCY DEPARTMENT COURSE: I examined the patient. X-rays of the right knee were reviewed by myself and read by radiology and reveal trace joint effusion, but no bony abnormality. The patient was offered a knee immobilizer and crutches, but declines. She states she has crutches at home. Discharge instructions were reviewed, the patient was discharged home in good condition. I attest that I have personally reviewed the patient's current medication list. Blood Pressure Screening: Patient was found to have a slightly elevated blood pressure due to circumstances. I do not believe that the patient requires hypertension monitoring. DIFFERENTIAL DIAGNOSIS: Contusion, fracture, sprain, strain, abrasion, laceration, and others DIAGNOSIS: Right knee contusion, fall on ice Problem List Medical Problems: (1) Chronic migraine Status: Chronic (2) Fibromyalgia Status: Chronic (3) Gall bladder disease Status: Chronic (4) Lupus Status: Chronic (5) Stomach problems Status: Resolved (6) Ulcer Status: Resolved Current/Historical Medications Scheduled Cholecalciferol (Vitamin D), Unknown Dose PO DAILY Allergies Coded Allergies: Sulfa Antibiotics (Verified Allergy, Severe, LUPUS FLARE UP, 12/15/17) Amoxicillin (Verified Allergy, Intermediate, CHEST PAIN, 12/15/17) Mupirocin (Verified Allergy, Intermediate, RASH, 12/15/17) Vital Signs Date Time Temp Pulse Resp B/P (MAP) Pulse Ox O2 Delivery O2 Flow Rate FiO2 12/15/17 11:33 37.2 108 20 160/90 99 Room Air Medications Administered Medications (Trade) Dose Ordered Sig/Loretta Route Start Time Stop Time Status Last Admin Dose Admin Ibuprofen (Motrin Tab) 600 mg NOW STAT PO 12/15/17 12:00 12/15/17 12:02 DC 12/15/17 12:40 600 MG Departure Information Impression Primary Impression: Contusion of right knee, initial encounter Additional Impression: Fall from slipping on ice Dispostion Home / Self-Care Condition GOOD Referrals No Doctor, Assigned (PCP) [facility] Patient Instructions ED Sprain Knee, My [facility] Additional Instructions ORTHOPEDIC INSTRUCTIONS: Ibuprofen(Motrin, Advil) may be used for fever or pain. Use 600mg every six hours as needed. Take with food. Avoid using more than 2400mg in a 24 hour period. Do not use 2400mg per day for more than three consecutive days without physician direction. Prolonged inappropriate use can lead to stomach upset or ulcers. (AND/OR) Acetaminophen(Tylenol) may be used for fever or pain. Use 1000mg every six hours as needed. Avoid using more than 3000mg in a 24 hour period. Ice compresses for 20 minutes at a time four times daily for 2-3 days. Use the crutches you have at home as instructed. Rest and elevate your injury. Return to the ER immediately for any numbness, tingling, severe pain, extreme swelling in the extremity or as needed. Call [facility], [phone], if no improvement in 1 week to arrange follow up for your injury. Follow-up with your primary care physician in 2 to 3 days for a recheck of your current condition. Problem Qualifiers Additional Impression: Fall from slipping on ice Encounter type: initial encounter Qualified Codes: W00.9XXA - Unspecified fall due to ice and snow, initial encounter
[2017-12-15 13:53] VITALS: BP 128/75; PULSE 78; O2SAT 98
== END 2017-12-15 13:56 | disposition home or self-care (01) ==
LOC: C.EDB 11:27 → C.EDD 13:56
DX: S80.01XA Contusion of right knee, initial encounter (principal); W00.9XXA Unspecified fall due to ice and snow, initial encounter; Z79.899 Other long term (current) drug therapy; E66.9 Obesity, unspecified; Z68.41 Body mass index [BMI] 40.0-44.9, adult; M32.9 Systemic lupus erythematosus, unspecified; M79.7 Fibromyalgia; K82.9 Disease of gallbladder, unspecified

== ENCOUNTER 2017-12-22 18:00 | Emergency (ER) | payer OTHER ==
[~2017-12-22] VITALS: Ht 162.6 cm; Wt 119.0 kg
[~2017-12-22 18:00] MED LIST changes: -ACET-1256 PO; -ASCA500 PO; -BIOT1TAB5 PO; +CHOL100010 PO; -CHRO200T3 PO; -CIPR-255 PO; -IBUP-1050 PO
[2017-12-22 18:16] VITALS: TEMP 37.4; Ht 162.6 cm; Wt 119.0 kg
[2017-12-22] MEDS ORDERED: ACETAMINOPHEN 500 MG TAB PO STA (18:36)
--- NOTE | 2017-12-22 18:59 | DIAGNOSTIC IMAGING REPORT ---
RIGHT KNEE 3 VIEWS HISTORY: Right knee pain. SLIPPED ON ICE COMPARISON: Right knee 12/15/2017. FINDINGS: There is no fracture or dislocation. Prepatellar soft tissue swelling. No knee effusion. No radiopaque foreign bodies. IMPRESSION: No fractures. Prepatellar soft tissue swelling. Electronically signed by: Steven Giordano M.D. 12/22/2017 6:57 PM Dictated Date/Time: 12/22/2017 6:56 PM
[2017-12-22] MEDS ORDERED: DICL1GEL12 TOP (19:14)
--- NOTE | 2017-12-22 19:17 | EMERGENCY ROOM VISIT NOTE ---
ED Visit Note First contact with patient: 18:26 CHIEF COMPLAINT: fall, right knee pain HISTORY OF PRESENT ILLNESS: This 22-year-old female patient presents to the emergency department approximately 2 hours after sustaining an injury to the right knee from falling. The patient was seen here last week for a similar injury in the same knee. She did have a negative x-ray performed at that time. She states she was feeling better this week, that today, she slipped in the snow and fell, landing on her right knee. She does report a twisting type of injury prior to landing on the knee. The patient denies any other injuries besides their knee. The patient denies swelling or bruising. There is pain "deep into the joint". They rate the pain as throbbing and 7/10. The patient states they are able to walk on it. No numbness or tingling. No previous injuries to this knee. No ankle, foot or hip pain. REVIEW OF SYSTEMS: A 6 system review of systems was completed with positives and pertinent negatives listed in the HPI. ALLERGIES: Amoxicillin, mupirocin, sulfa MEDICATIONS: Vitamin D PMH: Lupus, fibromyalgia SOCIAL HISTORY: The patient is a [employer] student. She lives locally with her remain. She denies drug, alcohol, tobacco use. PHYSICAL EXAM: Vital Signs: Reviewed Nurse's notes, vital signs stable. GENERAL : This is a 22-year-old obese white female, no acute distress, but appears in pain, well-developed, well-nourished. MENTAL STATUS: Alert, oriented to person place and time, and cooperative. MUSCULOSKELETAL: The right knee is not swollen. There is no ecchymosis. There is no joint effusion present. The patient is tender in the posterior aspect of the knee. There is joint line tenderness. The patella does appropriately subluxate. Range of motion is full, however painful. Strength of the quads and hamstrings is 5/5. Marcelo's is negative. Charo's and Anterior Drawer tests are negative for laxity, but are painful. There is discomfort, but no laxity with varus and valgus stressing. The foot and toes are warm and well-perfused. Dorsalis pedis pulse 2+. Sensation to pain and light touch is intact. Capillary refill less than 2 seconds. RADIOLOGY: Right Knee X-ray: FINDINGS: There is no fracture or dislocation. Prepatellar soft tissue swelling. No knee effusion. No radiopaque foreign bodies. IMPRESSION: No fractures. Prepatellar soft tissue swelling. EMERGENCY DEPARTMENT COURSE: I examined the patient. X-rays of the right knee were reviewed by myself and read by radiology and reveal a joint effusion, but no acute fracture or bony abnormality. The patient was given 1 g Tylenol by mouth. The patient was placed in a knee immobilizer under my direction and the position was satisfactory. The patient was instructed on the use of crutches. She does have crutches at home which she was encouraged to use. The patient was discharged home in good condition. I attest that I have personally reviewed the patient's current medication list. Blood Pressure Screening: Patient was found to have a slightly elevated blood pressure due to circumstances. I do not believe that the patient requires hypertension monitoring. DIFFERENTIAL DIAGNOSIS: fracture, sprain, ligament tear, contusion, abrasion, malignancy, and others DIAGNOSIS: Right knee sprain Problem List Medical Problems: (1) Chronic migraine Status: Chronic (2) Fibromyalgia Status: Chronic (3) Gall bladder disease Status: Chronic (4) Lupus Status: Chronic (5) Stomach problems Status: Resolved (6) Ulcer Status: Resolved Current/Historical Medications Scheduled Cholecalciferol (Vitamin D3 400), 400 INTER.UNIT PO DAILY Scheduled PRN Aiiwjha-Wctxqwksaljjl-Ebizgdig (Excedrin Migraine), 1 TAB PO UD PRN for Headache Diclofenac Sodium (Topical) (Voltaren 1% Top Gel), 1 APPLN TOP QID PRN for Pain Allergies Coded Allergies: Sulfa Antibiotics (Verified Allergy, Severe, LUPUS FLARE UP, 12/15/17) Amoxicillin (Verified Allergy, Intermediate, CHEST PAIN, 12/15/17) Mupirocin (Verified Allergy, Intermediate, RASH, 12/15/17) Vital Signs Date Time Temp Pulse Resp B/P (MAP) Pulse Ox O2 Delivery O2 Flow Rate FiO2 12/22/17 18:16 37.4 97 20 151/102 100 Room Air Medications Administered Medications (Trade) Dose Ordered Sig/Loretta Route Start Time Stop Time Status Last Admin Dose Admin Acetaminophen (Tylenol Tab) 1,000 mg NOW STAT PO 12/22/17 18:36 12/22/17 18:37 DC 12/22/17 19:07 1,000 MG Departure Information Impression Primary Impression: Sprain of right knee Dispostion Home / Self-Care Condition GOOD Prescriptions Diclofenac Sodium (Topical) (VOLTAREN 1% TOP GEL) 1 % Gel 1 APPLN TOP QID Y for Pain, #1 TUBE Prov: Brook Mak PA-C 12/22/17 Referrals No Doctor, Assigned (PCP) [facility] Patient Instructions ED Immobilizer Knee, ED Sprain Knee, My [facility] Additional Instructions You have been treated in the Emergency Department for Knee Pain. For pain control, you can use the following glua-kks-csskdox medicines (if >12 yo): Ibuprofen(Motrin, Advil) may be used for fever or pain. Use 600mg every six hours as needed. Take with food. Avoid using more than 2400mg in a 24 hour period. Do not use 2400mg per day for more than three consecutive days without physician direction. Prolonged inappropriate use can lead to stomach upset or ulcers. (AND/OR) Acetaminophen(Tylenol) may be used for fever or pain. Use 1000mg every six hours as needed. Avoid using more than 3000mg in a 24 hour period. You may use Voltaren Gel as prescribed topically for pain relief. If this is a recent injury (<24 hrs), ice can be applied to the area of pain for the first 3 days to help decrease pain and inflammation. Ice massages can be performed by freezing water in a paper cup, peeling back the cup to expose the ice and then massaging over the affected area. You have been provided the number for an Orthopaedic Surgeon. You should call this number as soon as possible to establish a follow-up visit from today's Emergency Department visit. Keep the knee brace in place until cleared by Orthopedics or until you are pain free. Use the crutches you have been provided to keep ALL weight off of the knee until weight bearing is tolerable. Return to the Emergency Department if your current symptoms worsen despite treatment course outlined above. Problem Qualifiers Primary Impression: Sprain of right knee Encounter type: initial encounter Involved ligament of knee: unspecified ligament Qualified Codes: S83.91XA - Sprain of unspecified site of right knee , initial encounter
[2017-12-22] MEDS ORDERED: CHOL400C PO (19:20)
[2017-12-22] MEDS ORDERED: ASPI-390 PO (19:20)
[2017-12-22 19:27] VITALS: BP 134/94; PULSE 86; O2SAT 97
== END 2017-12-22 19:30 | disposition home or self-care (01) ==
LOC: C.EDB 18:01 → C.EDD 19:30
DX: S83.91XA Sprain of unspecified site of right knee, initial encounter (principal); W19.XXXA Unspecified fall, initial encounter; M79.7 Fibromyalgia

== ENCOUNTER → 2018-01-28 | Outpatient (CLI) | payer OTHER ==
[~2018-01-28] MED LIST changes: +ASPI-390 PO; -CHOL100010 PO; +CHOL400C PO; +DICL1GEL12 TOP
--- NOTE | 2018-01-28 12:31 | DIAGNOSTIC IMAGING REPORT ---
R LOWER EXT JOINT WITHOUT CLINICAL HISTORY: RIGHT KNEE EFFUSION trauma. Pain. TECHNIQUE: Multiaxial MRI acquisition COMPARISON STUDY: None FINDINGS: Signal characteristics of the osseous structures are unremarkable. No significant bone marrow replacing process. There is minimal soft tissue edema and tear to the infrapatellar ligament. There is no significant joint effusion nor is there evidence for popliteal cyst. Anterior and posterior cruciate ligaments are normal. Medial and lateral collateral ligament structures are intact. The menisci are within normal limits. Articular services throughout are intact. Medial and lateral patellar retinaculum are unremarkable. IMPRESSION: 1. Mild soft tissue edema anterior to the infrapatellar ligament. 2. Study is otherwise normal. The above report was generated using voice recognition software. It may contain grammatical, syntax or spelling errors. Electronically signed by: Giovanni Parra M.D. 01/28/2018 12:30 PM Dictated Date/Time: 01/28/2018 12:21 PM
== END | disposition home or self-care (01) ==
LOC: C.MRIBC 11:14
PROVIDERS: ATTEND Family Medicine Sports Medicine
DX: M25.561 Pain in right knee (principal); M25.461 Effusion, right knee

== ENCOUNTER 2018-04-06 12:16 | Emergency (ER) | payer OTHER ==
[~2018-04-06] VITALS: Ht 162.6 cm; Wt 111.5 kg
[2018-04-06 12:18] VITALS: TEMP 37.1; Ht 162.6 cm; Wt 111.5 kg
[2018-04-06] MEDS ORDERED: IBUPROFEN 800 MG TAB PO STA (13:59)
[2018-04-06 14:17] VITALS: BP 142/91; PULSE 84; O2SAT 100
[2018-04-06] MEDS ORDERED: TOPI50TA16 PO ×2 (14:37)
[2018-04-06] MEDS ORDERED: RIZA5TAB10 PO (14:37)
[2018-04-06] MEDS ORDERED: CHOL1000 PO (14:37)
[2018-04-06] MEDS ORDERED: LEVO150T PO (14:37)
[2018-04-06] MEDS ORDERED: SERT25TA PO (14:37)
[2018-04-06] MEDS ORDERED: PANT40TA PO (14:37)
--- NOTE | 2018-04-06 14:38 | EMERGENCY ROOM VISIT NOTE ---
History Report prepared by Ayden: Elian Saxena Under the Supervision of: Dr. Jhonatan Joseph M.D. First contact with patient: 12:22 Chief Complaint: THROAT PAIN/INJURY Stated Complaint: JAW, THROAT AND NECK PAIN History of Present Illness The patient is a 22 year old female who presents to the Emergency Room with complaints of worsening right-sided throat pain beginning four days ago. The patient has a history of lupus, but states that she is currently off of her medications due to insurance problems. She is currently taking Synthroid and Topamax. She also complains of low-grade fevers. The patient denies SOB, chest pain, cough, or runny nose. She denies chance of . The patient has no history of blood clots. Source of History: patient Onset: Four days ago Position: throat (right-side) Timing: worsening Associated Symptoms: + fevers (low-grade), No cough, No chest pain, No SOB Note: Negative: runny nose. Review of Systems See HPI for pertinent positives and negatives. A total of ten systems were reviewed and were otherwise negative. Past Medical & Surgical Medical Problems: (1) Chronic migraine (2) Fibromyalgia (3) Gall bladder disease (4) Lupus (5) Stomach problems (6) Ulcer Family History Diabetes mellitus Gallbladder disease Heart disease Hypertension Lung disease Social History Smoking Status: Never Smoker Alcohol Use: none Drug Use: none Marital Status: single Housing Status: lives with roommate Occupation Status: student Current/Historical Medications Scheduled Cholecalciferol (Vitamin D3), 1 TAB PO DAILY Levothyroxine Sodium (Synthroid), 1 TAB PO DAILY Pantoprazole Sodium (Protonix), 1 TAB PO DAILY Sertraline (Zoloft), 1 TAB PO DAILY Topiramate (Topamax), 50 MG PO QAM Topiramate (Topamax), 75 MG PO QPM Miscellaneous Medications Rizatriptan Benzoate (Maxalt), 5 MG PO Allergies Coded Allergies: Sulfa Antibiotics (Verified Allergy, Severe, LUPUS FLARE UP, 12/15/17) Amoxicillin (Verified Allergy, Intermediate, CHEST PAIN, 12/15/17) Mupirocin (Verified Allergy, Intermediate, RASH, 12/15/17) Physical Exam Vital Signs Date Time Temp Pulse Resp B/P (MAP) Pulse Ox O2 Delivery O2 Flow Rate FiO2 04/06/18 14:17 84 16 142/91 100 Room Air 04/06/18 13:47 Room Air 04/06/18 12:18 37.1 112 16 156/99 100 Room Air Physical Exam Physical Exam GENERAL: She is oriented to person, place, and time. She appears well- developed and well-nourished. She does not appear distressed. ____ HENT: Exam performed. Head: Normocephalic and atraumatic. Right Ear: External ear normal. No mastoid tenderness. Left Ear: External ear normal. No mastoid tenderness. Mouth/Throat: The oropharynx is clear and moist. No trismus in the jaw. No dental abscesses or uvula swelling. No trismus. No submental or sublingual swelling. No oropharyngeal exudate or tonsillar abscesses. ___ EYES: Conjunctivae and EOM are normal. Pupils are equal, round, and reactive to light. Right eye exhibits no discharge. Left eye exhibits no discharge. No scleral icterus. ____ NECK: Normal range of motion. Neck supple. No JVD present. No spinous process tenderness present. No carotid bruit present. No rigidity. No tracheal deviation and normal range of motion present. No Brudzinski's sign and no Kernig 's sign noted. ____ CV: Normal rate, regular rhythm, normal heart sounds and intact distal pulses. There is no peripheral edema. Palpable radial pulses bue. ____ PULM/CHEST: Effort normal and breath sounds normal. No respiratory distress. No stridor. She has no wheezes. She has no rales. Chest Wall: She exhibits no tenderness. ____ ABD: The abdomen is soft. Bowel sounds are normal. She has no distension. No mass is present. There is no tenderness. There is no rebound, no guarding, no Das's sign and no tenderness at McBurney's point. Rovsig negative MUSC/SKEL: Normal range of motion. There is no peripheral edema, tenderness or deformity. LYMPH: No cervical adenopathy. ____ NEURO: She is alert and oriented to person, place, and time. She has normal strength. No cranial nerve deficit or sensory deficit. Coordination and gait normal. GCS eye subscore is 4. GCS verbal subscore is 5. GCS motor subscore is 6. Cerebellar tests wnl. ____ SKIN: Skin is warm and dry. She is not diaphoretic. ____ PSYCH: She has a normal mood and affect. Her behavior is normal. Judgment and thought content normal. ____ Medical Decision & Procedures Medications Administered Medications (Trade) Dose Ordered Sig/Loretta Route Start Time Stop Time Status Last Admin Dose Admin Ibuprofen (Motrin Tab) 800 mg NOW STAT PO 04/06/18 13:59 04/06/18 14:00 DC 04/06/18 14:16 800 MG ED Course 1224: The patient was evaluated in room B3B. A complete history and physical exam was performed. 1259: Ordered Motrin Tab 800 mg PO. 1410: Patient's vital signs are stable. Rapid strep is negative. Patient is tolerating PO in the ED. Patient will be called if her strep culture is positive and will be prescribed antibiotics. She was instructed for supportive care. No risk factors for Sage's angina. PE not concerning for JIG MAKER or RPA. DISCHARGE - Plan of care discussed with patient and questions answered. The patient was given both verbal and printed discharge instructions. The patient verbalized understanding and ability to comply. The patient is to seek outpatient follow up as noted in the discharge instructions. The patient verbalized understanding and ability to comply. The patient is discharged in stable condition. The patient was instructed to return for worsening symptoms. Medical Decision Patient's vital signs are stable. Rapid strep is negative. Patient is tolerating PO in the ED. Patient will be called if her strep culture is positive and will be prescribed antibiotics. She was instructed for supportive care. No risk factors for Sage's angina. PE not concerning for JIG MAKER or RPA. DISCHARGE - Plan of care discussed with patient and questions answered. The patient was given both verbal and printed discharge instructions. The patient verbalized understanding and ability to comply. The patient is to seek outpatient follow up as noted in the discharge instructions. The patient verbalized understanding and ability to comply. The patient is discharged in stable condition. The patient was instructed to return for worsening symptoms. Medication Reconcilliation Current Medication List: was personally reviewed by me Blood Pressure Screening Patient's blood pressure: Elevated blood pressure Blood pressure disposition: Elevated BP felt to be situational Impression Primary Impression: Pharyngitis Scribe Attestation The scribe's documentation has been prepared under my direction and personally reviewed by me in its entirety. I confirm that the note above accurately reflects all work, treatment, procedures, and medical decision making performed by me. The chart was completed utilizing [employer] Speech voice recognition software. Grammatical errors, random word insertions, pronoun errors, and incomplete sentences are an occasional consequence of this system due to software limitations, ambient noise, and hardware issues. Any formal questions or concerns about the content, text, or information contained within the body of this dictation should be directly addressed to the physician for clarification. Departure Information Dispostion Home / Self-Care Referrals No Doctor, Assigned (PCP) Forms HOME CARE DOCUMENTATION FORM, IMPORTANT VISIT INFORMATION, WORK / SCHOOL INSTRUCTIONS Patient Instructions ED Pharyngitis Viral, My [facility], Sore Throats Self Care Problem Qualifiers Primary Impression: Pharyngitis Pharyngitis/tonsillitis etiology: unspecified etiology Qualified Codes: J02.9 - Acute pharyngitis, unspecified
== END 2018-04-06 14:45 | disposition home or self-care (01) ==
LOC: C.EDB 12:17
DX: J02.9 Acute pharyngitis, unspecified (principal); G43.709 Chronic migraine without aura, not intractable, without status migrainosus; Z86.2 Personal history of diseases of the blood and blood-forming organs and certain disorders involving the immune mechanism; Z88.0 Allergy status to penicillin; Z88.1 Allergy status to other antibiotic agents; Z88.2 Allergy status to sulfonamides